=== PATIENT | female | born 1975 | race African-American/Black ===

== ENCOUNTER → 2016-03-12 | Outpatient (CLI) | payer OTHER | LOC: HPND 08:42 | PROVIDERS: ATTEND Obstetrics & Gynecology | DX: O09.522 Supervision of elderly multigravida, second trimester (principal); O24.12 Pre-existing type 2 diabetes mellitus, in childbirth; O09.292 Supervision of pregnancy with other poor reproductive or obstetric history, second trimester; O34.32 Maternal care for cervical incompetence, second trimester | CPT/HCPCS: 76816; 76825; 76827; 93325 ==

== ENCOUNTER → 2016-04-01 | Outpatient (CLI) | payer OTHER | LOC: HPND 14:37 | PROVIDERS: ATTEND Obstetrics & Gynecology | DX: O09.523 Supervision of elderly multigravida, third trimester (principal); O09.293 Supervision of pregnancy with other poor reproductive or obstetric history, third trimester; O34.33 Maternal care for cervical incompetence, third trimester; Z3A.30 30 weeks gestation of pregnancy | CPT/HCPCS: 76816 ==

== ENCOUNTER 2016-05-23 13:46 | Emergency (ER) | payer OTHER ==
[2016-05-23] MEDS ORDERED: SODIUM CHLOR 0.9% 1000 ML INJ 1,000 ML IV SCH (14:47)
[2016-05-23] MEDS ORDERED: SODIUM CHLORIDE 0.9% FLUSH 5 ML FLUSH IVF PRN (15:00)
--- NOTE | 2016-05-23 15:19 | PD ---
HPI Chief Complaint tachycardia Date Seen: May 23, 2016 Time Seen: 05:00 (Lonny Abbott MD R2) Travel History International Travel<30 Days: No Contact w/Intl Traveler<30Days: No Known Affected Area: No (Lonny Abbott MD R2) History of Present Illness HPI This is a 41-year-old -[place] female at 37/3 weeks gestational age with diabetes mellitus, polyhydramnios, and being monitored for tachycardia. She came for her weekly NST and was found to have tachycardia with a baseline in the 180s. She reports good movement, denies any discharge, ruptured fluid or bleeding. She denies any consistent contractions, complaining of only occasional Nevis Landrum. She denies any recent stressors. She denies any increased urination or burning with urination or smell with urination. Overall she says she is feeling okay and is looking forward to seeing the baby in the next couple weeks. Patient of Dr. Quezada GBS negative Para: 3 : 8 Miscarriage: 2 : 2 (Lonny Abbott MD R2) History Past Medical History Narrative Medical Diabetes mellitus on insulin (Lonny Abbott MD R2) Obstetric History Obstetric History 2 vaginal deliveries One delivery 2 abortions 2 miscarriages (Lonny Abbott MD R2) Past Surgical History Narrative Surgical (Lonny Abbott MD) Family History Narrative Family History Noncontributory (Lonny Abbott MD) Social History Alcohol Use: No Tobacco Use: No Substance Abuse: No (Lonny Abbott MD R2) Allergies-Medications (Allergen,Severity, Reaction): Coded Allergies: Betadine (Verified Allergy, Severe, HIVES/HIVES, 05/23/16) Iodine (Verified Allergy, Severe, HIVES/ITCHING, 05/23/16) Latex (Verified Allergy, Severe, HIVES/ITCHING, 05/23/16) Morphine (Verified Allergy, Severe, HIVES/ITCHING, 05/23/16) Naproxen (Verified Allergy, Severe, Shortness of Breath, 05/23/16) Shellfish (Verified Allergy, Severe, SOB, HIVES,ITCHING, WATERY EYES, 05/23) Soybean (Verified Allergy, Severe, STUFF NOSE, ITCHY MOUTH, WATERY EYES , 05/23/16) Tramadol (Verified Allergy, Severe, Shortness of Breath, 05/23/16) Review of Systems General / Constitutional: No: Fever, Weight Loss Eyes: No: Diploplia, Blurred Vision HENT: No: Headaches, Lightheadedness Cardiovascular: No: Irregular Rhythm, Chest Pain or Discomfort, Edema Respiratory: No: Cough, Short of Breath, Wheezing Gastrointestinal: No: Nausea, Vomiting, Abdominal Pain Genitourinary: No: Urgency, Dysuria, Dribbling, Pelvic Pain, Dyspareunia, Discharge, Vaginal Bleeding Musculoskeletal: Edema (in the lower extremities worse at the end of the day better in the morning), No: Cramping Skin: No Rash, No Itching Neurologic: No: Weakness, Dizziness, Headache, Slurred Speech Psychiatric: No: Anxiety, Depression Hematologic/Lymphatic: No Easy Bruising (Lonny Abbott MD R2) Physical Exam Narrative GENERAL: Well-nourished, well-developed patient. SKIN: Warm and dry. HEAD: Normocephalic and atraumatic. EYES: No scleral icterus. No injection or drainage. ENT: No nasal drainage noted. Mucous membranes pink. Airway patent. NECK: Supple, trachea midline. No JVD. CARDIOVASCULAR: Regular rate and rhythm without murmurs, gallops, or rubs. RESPIRATORY: Breath sounds equal bilaterally. No accessory muscle use. ABDOMEN/GI: Abdomen soft, non-tender, bowel sounds present, no rebound, no guarding Gravid to 40 weeks size Fundal Height: 40 GENITOURINARY: Uterine Contractions: None FHT's: Category: 1 Baseline: 150 Reactive: Up to 175 Variability: Moderate Decels: None EXTREMITIES: No cyanosis or edema. NEUROLOGICAL: Awake and alert. Motor and sensory grossly within normal limits. Five out of 5 muscle strength in all muscle groups. Normal speech. (Lonny Abbott MD R2) Data Data Vital Signs Reviewed: Yes Orders Vital Signs (Adult) .ON ADMISSION (05/23/16 14:47) ^ Labor Status (05/23/16 14:47) Urinalysis - C+S If Indicated (05/23/16 14:47) ^ Hydration (05/23/16 14:47) Cbc No Diff, Includes Plts (05/23/16 14:47) Comprehensive Metabolic Panel (05/23/16 14:47) Sodium Chlor 0.9% 1000 Ml Inj (Ns 1000 M (05/23/16 14:47) Sodium Chloride 0.9% Flush (Ns Flush) (05/23/16 15:00) (Lonny Abbott MD R2) MDM Medical Record Reviewed: Yes Interpretation(s) tachycardia Narrative Course / MDM This is a 41-year-old -[place] female at 37/3 weeks gestational age with diabetes mellitus, polyhydramnios, and being monitored for tachycardia. Plan 1. IUP: Polyhydramnios, GBS negative -Continuous heart monitoring -Continuous monitoring for contractions -Continue routine care 2. tachycardia: -IV fluid bolus - heart monitoring: Currently category 1 improved from presentation -CBC: pending -CMP: pending -UA with culture if indicated: pending -Monitor at this time for improvement following IV fluids DW: Dr. Flores (Lonny Abbott MD R2) Diagnosis Diagnosis: Primary Impression: tachycardia before the onset of labor Disposition: DISCHARGE HOME Condition: Stable Addendum Remarks I rounded on the patient. I rounded with the resident. I reviewed the resident' s assessment and plan of care for this patient. I am in agreement with the plan of care for this patient. Report given to Dr Quezada who states send the patient to the office now to have the cerclage removed will send pt in put on kick count Labs to be followed up by Dr Quezada Patient unable to give a urine (Rosalva Hauser MD) Lonny Abbott MD R2 May 23, 2016 15:19 Rosalva Hauser MD May 23, 2016 15:35
[2016-05-23 15:44] LABS: HEMATOCRIT 36.2 % (35.0-46.0); MEAN CELL VOLUME 77.9 FL (80.0-100.0); MEAN CORPUSCULAR HGB CONC 33.4 % (32.0-36.0); PLATELET COUNT 227 TH/MM3 (150-450); RED BLOOD COUNT 4.65 MIL/MM3 (4.00-5.30); REVIEW FLAG FINAL
[2016-05-23 15:46] LABS: ALT (GPT) 12 U/L (10-53); ANION GAP 9 MEQ/L (5-15); AST (GOT) 12 U/L (15-37); BLOOD UREA NITROGEN 9 MG/DL (7-18); CHLORIDE 103 MEQ/L (98-107); GLOMERULAR FILTRATION RATE 107 ML/MIN (>89); POTASSIUM 3.7 MEQ/L (3.5-5.1); SODIUM (NA) 137 MEQ/L (136-145)
[2016-05-23 15:48] LABS: ALKALINE PHOSPHATASE 167 U/L (45-117); TOTAL BILIRUBIN ADULT 0.3 MG/DL (0.2-1.0)
== END 2016-05-23 16:04 | disposition home or self-care (01) ==
LOC: HOBED 13:46
DX: O76 Abnormality in fetal heart rate and rhythm complicating labor and delivery (principal); O40.3XX0 Polyhydramnios, third trimester, not applicable or unspecified; O24.313 Unspecified pre-existing diabetes mellitus in pregnancy, third trimester; E11.9 Type 2 diabetes mellitus without complications; Z79.4 Long term (current) use of insulin; Z3A.37 37 weeks gestation of pregnancy
CPT/HCPCS: 80053; 82948; 85027; 99283; J7030